=== PATIENT | female | born 1970 | race Hispanic/Latino ===

== ENCOUNTER → 2019-12-24 | Outpatient (CLI) | payer BC ==
--- NOTE | 2019-12-24 13:05 | Diagnostic Imaging Report ---
EXAMINATION: HEEL RT INDICATION: Right heel pain COMPARISON: None FINDINGS: AP and lateral views of the right calcaneus demonstrate no acute fracture or dislocation. Alignment is anatomic. Soft tissues appear unremarkable. No substantial ankle joint effusion. Small plantar calcaneal spur and mild Achilles enthesopathy. IMPRESSION: No acute osseous injury. Mild bony pole of changes of the calcaneus. Signed by: Mathieu Beck MD on 12/24/2019 1:02 PM
== END ==
LOC: RAD 12:07
PROVIDERS: ATTEND Family Medicine
DX: M79.671 Pain in right foot (principal); M77.31 Calcaneal spur, right foot